=== PATIENT | male | born 1985 | race African-American/Black ===

== ENCOUNTER 2019-04-15 14:06 | Emergency (ER) | payer OTHER ==
[~2019-04-15] VITALS: Ht 177.8 cm; Wt 165.1 kg
[2019-04-15 14:15] VITALS: Ht 177.8 cm; Wt 165.1 kg
[2019-04-15 15:45] LABS: microscopic required? NO
[2019-04-15 15:57] LABS: UA SPECIFIC GRAVITY 1.015 (1.005-1.035); urine erythrocyte NEGATIVE (NEGATIVE)
[2019-04-15 16:02] LABS: BASOPHIL % 0.4 % (0-2); PLATELET COUNT 190 x10^3mcL (130-400); RED CELL DISTRIBUTION WIDTH 14.6 % (11.5-14.5)
[2019-04-15 16:05] LABS: CALCIUM 10.2 mg/dL (8.5-10.1); CARBON DIOXIDE 26.8 mmol/L (21-32); CREATININE SERUM 1.5 mg/dL (0.7-1.3); POTASSIUM SERUM 4.2 mmol/L (3.5-5.1)
[2019-04-15 16:11] LABS: ALBUMIN 3.9 g/dL (3.4-5.0); BILIRUBIN TOTAL 0.71 mg/dL (0.20-1.00)
[2019-04-15 16:14] LABS: TOTAL PROTEIN, SERUM 8.5 g/dL (6.4-8.2)
[2019-04-15 16:20] LABS: T3 TOTAL 1.22 ng/mL
[2019-04-15 16:24] LABS: AMPHETAMINE QUAL UR NONE DETECTED (See below)
[2019-04-15 16:32] LABS: FREE T4 1.24 ng/dL (0.76-1.46); FREE THYROXINE INDEX 2.9 ug/dL (1.4-4.5); T4(THYROXINE) 7.8 ug/dL (4.7-13.3)
[2019-04-15 19:25] VITALS: BP 153/106
== END 2019-04-15 19:25 | disposition home or self-care (01) ==
LOC: ED 14:06
PROVIDERS: Specialist
DX: I10 Essential (primary) hypertension (principal); E11.65 Type 2 diabetes mellitus with hyperglycemia; E66.01 Morbid (severe) obesity due to excess calories
CPT/HCPCS: 82962; 84439; J1815; J3490; J7030; Q0092